=== PATIENT | female | born 1975 | race Two or more races ===

== ENCOUNTER 2022-04-03 07:15 | Inpatient (IN) | payer OTHER ==
[~2022-04-03] VITALS: Ht 154.9 cm; Wt 74.8 kg
[2022-04-03] MEDS ORDERED: NORVASC2.5 M1 PO (08:30)
[2022-04-03] MEDS ORDERED: LEVOTHYROXINE25 MCG PO (08:30)
[2022-04-03] MEDS ORDERED: MAX FE PO (08:32)
[2022-04-04] MEDS ORDERED: AMLODIPINE BESY10 MG (16:06)
== END 2022-04-07 12:12 | disposition home or self-care (01) | DRG 336 ==
LOC: SURH 04-04 07:15 → SURG 04-04 07:51 → O/R 04-04 07:51 → SURG 04-05 05:54
PROVIDERS: ADMIT Specialist; ATTEND Specialist
PROC: 0UT90ZZ Resection of Uterus, Open Approach (ICD-10-PCS; 2022-04-04)
PROC: 07TC0ZZ Resection of Pelvis Lymphatic, Open Approach (ICD-10-PCS; 2022-04-04)
PROC: 0UT50ZZ Resection of Right Fallopian Tube, Open Approach (ICD-10-PCS; 2022-04-04)
PROC: 0UT00ZZ Resection of Right Ovary, Open Approach (ICD-10-PCS; 2022-04-04)
PROC: 0TN70ZZ Release Left Ureter, Open Approach (ICD-10-PCS; 2022-04-04)
PROC: 0TN60ZZ Release Right Ureter, Open Approach (ICD-10-PCS; 2022-04-04)
PROC: 0DBU0ZZ Excision of Omentum, Open Approach (ICD-10-PCS; 2022-04-04)
PROC: 0UB00ZZ Excision of Right Ovary, Open Approach (ICD-10-PCS; 2022-04-04)
PROC: 3E1M38Z Irrigation of Peritoneal Cavity using Irrigating Substance, Percutaneous Approach (ICD-10-PCS; 2022-04-04)
PROC: 0DNW0ZZ Release Peritoneum, Open Approach (ICD-10-PCS; principal; 2022-04-04 12:00)
PROC: 30233N1 Transfusion of Nonautologous Red Blood Cells into Peripheral Vein, Percutaneous Approach (ICD-10-PCS; 2022-04-05)
DX: C78.6 Secondary malignant neoplasm of retroperitoneum and peritoneum (principal); C79.61 Secondary malignant neoplasm of right ovary; C79.82 Secondary malignant neoplasm of genital organs; D62 Acute posthemorrhagic anemia; C54.1 Malignant neoplasm of endometrium; Z20.822 Contact with and (suspected) exposure to COVID-19